=== PATIENT | female | born 1990 | race Caucasian/White ===

== ENCOUNTER 2021-10-19 12:35 | Emergency (ER) | payer OTHER ==
[~2021-10-19 12:35] MED LIST: AZITHROMYCIN250 MG PO; BENTYL10 MG PO; PREDNISONE 20MG20 MG PO; TOPAMAX25 MG PO; VENLAFAXINE HC100 MG PO
[2021-10-19 13:58] LABS: BILIRUBIN NEGATIVE (NEGATIVE); BLOOD 3+ Ery/uL (NEGATIVE); COLOR YELLOW (YELLOW); GLUCOSE (U) NORMAL (NORMAL); LEUKOCYTES 1+ Leu/uL (NEGATIVE); NITRITE NEGATIVE (NEGATIVE); PROTEIN 1+ mg/dL (NEGATIVE); SPECIFIC GRAVITY 1.025 (1.001-1.030); UROBILINOGEN 0.2 mg/dL (0.2-1.0)
[2021-10-19 13:59] LABS: BASOPHIL 0.1 % (0-2); EOSINOPHIL 0.5 % (0-5); HCT 43.1 % (37.0-47.0); HGB 14.3 g/dl (12.5-16.0); LYMPHOCYTE 12.8 % (15-48); MCH 30.2 pg (25.0-31.0); MCHC 33.2 g/dL (32.0-36.0); MCV 91.1 fL (78.0-100.0); MONOCYTE 6.6 % (0-12); MPV 10.4 fL (6.0-9.5); NEUTROPHIL 79.6 % (41-80); NRBC 0; PLT 200 K/uL (150-400); RBC 4.73 M/uL (4.20-5.40)
[2021-10-19 14:09] LABS: CLARITY CLOUDY (CLEAR)
[2021-10-19 14:13] LABS: BACTERIA 1+; URINARY RBC TNTC
[2021-10-19 14:25] LABS: ALBUMIN 3.8 g/dL (3.4-5.0); BILIRUBIN - TOTAL 0.4 mg/dL (0.2-1.0); BUN/CREAT RATIO (CALC) 13.6 RATIO; CREATININE 0.81 mg/dL (0.51-0.95); GLOBULIN (CALCULATION) 3.1 g/dL; POTASSIUM 4.2 mmol/L (3.5-5.1); TOTAL PROTEIN 6.9 g/dL (6.4-8.2)
[2021-10-19] MEDS ORDERED: NAPROSYN500 MG PO (14:38)
[2021-10-19] MEDS ORDERED: PYRIDIUM200 MG PO (14:39)
[2021-10-19] MEDS ORDERED: HYDROCODON-ACE1 EAC2 PO (14:39)
[2021-10-19] MEDS ORDERED: CEPHALEXIN500 MG PO (15:50)
== END 2021-10-19 16:01 | disposition home or self-care (01) ==
LOC: FER 12:35
PROVIDERS: Emergency Medicine
DX: N12 Tubulo-interstitial nephritis, not specified as acute or chronic (principal); F17.210 Nicotine dependence, cigarettes, uncomplicated; Z88.0 Allergy status to penicillin; Z88.2 Allergy status to sulfonamides
CPT/HCPCS: 36415; 80053; 81001; 82150; 83690; 85025; J0696; J2270; J2405

== ENCOUNTER 2021-10-25 19:20 | Emergency (ER) | payer OTHER ==
[~2021-10-25 19:20] MED LIST changes: +CEPHALEXIN500 MG PO; +HYDROCODON-ACE1 EAC2 PO; +NAPROSYN500 MG PO; +PYRIDIUM200 MG PO
[2021-10-25 20:12] LABS: BASOPHIL 0.2 % (0-2); EOSINOPHIL 2.8 % (0-5); HCT 41.2 % (37.0-47.0); HGB 13.6 g/dl (12.5-16.0); LYMPHOCYTE 32.5 % (15-48); MCH 30.1 pg (25.0-31.0); MCV 91.2 fL (78.0-100.0); MONOCYTE 8.5 % (0-12); MPV 10.2 fL (6.0-9.5); NEUTROPHIL 55.8 % (41-80); NRBC 0; PLT 189 K/uL (150-400); RBC 4.52 M/uL (4.20-5.40); RDW 13.1 % (11.5-14.0); WBC 5.8 K/uL (4.0-10.5)
[2021-10-25 20:16] LABS: BILIRUBIN NEGATIVE (NEGATIVE); BLOOD NEGATIVE Ery/uL (NEGATIVE); CLARITY CLEAR (CLEAR); COLOR YELLOW (YELLOW); GLUCOSE (U) NORMAL (NORMAL); LEUKOCYTES NEGATIVE Leu/uL (NEGATIVE); NITRITE NEGATIVE (NEGATIVE); PROTEIN NEGATIVE (NEGATIVE); SPECIFIC GRAVITY 1.025 (1.001-1.030); UROBILINOGEN 0.2 mg/dL (0.2-1.0)
[2021-10-25 20:30] LABS: ALBUMIN 3.4 g/dL (3.4-5.0); BILIRUBIN - TOTAL 0.2 mg/dL (0.2-1.0); BUN/CREAT RATIO (CALC) 12.5 RATIO; CREATININE 0.8 mg/dL (0.51-0.95); GLOBULIN (CALCULATION) 3.1 g/dL; POTASSIUM 3.7 mmol/L (3.5-5.1); TOTAL PROTEIN 6.5 g/dL (6.4-8.2)
== END 2021-10-25 21:22 | disposition home or self-care (01) ==
LOC: FER 19:20
PROVIDERS: Emergency Medicine
DX: R30.0 Dysuria (principal); F17.200 Nicotine dependence, unspecified, uncomplicated; Z88.0 Allergy status to penicillin; Z88.2 Allergy status to sulfonamides
CPT/HCPCS: 36415; 80053; 81003; 85025; 99283; J1885; J7030

== ENCOUNTER 2022-05-07 15:00 | Emergency (ER) | payer OTHER ==
[2022-05-07 17:20] LABS: BILIRUBIN NEGATIVE (NEGATIVE); BLOOD NEGATIVE Ery/uL (NEGATIVE); CLARITY CLEAR (CLEAR); COLOR YELLOW (YELLOW); GLUCOSE (U) TRACE mg/dL (NORMAL); LEUKOCYTES NEGATIVE Leu/uL (NEGATIVE); NITRITE POSITIVE (NEGATIVE); PROTEIN NEGATIVE (NEGATIVE); SPECIFIC GRAVITY <=1.005 (1.001-1.030); pH 6.5 (5.0-9.0)
[2022-05-07 17:34] LABS: BACTERIA TRACE; URINARY WBC RARE
[2022-05-07] MEDS ORDERED: CEPHALEXIN500 MG PO (18:36)
== END 2022-05-07 18:40 | disposition home or self-care (01) ==
LOC: FER 15:00
PROVIDERS: Nurse Practitioner Family
DX: N39.0 Urinary tract infection, site not specified (principal); Z88.2 Allergy status to sulfonamides; Z88.0 Allergy status to penicillin
CPT/HCPCS: 81001; 87088; 99284

== ENCOUNTER 2022-07-28 06:27 | Emergency (ER) | payer OTHER ==
[2022-07-28 06:55] LABS: BASOPHIL 0.2 % (0-2); EOSINOPHIL 0.8 % (0-5); HCT 39.6 % (37.0-47.0); HGB 13.4 g/dl (12.5-16.0); MCH 30.9 pg (25.0-31.0); MCHC 33.8 g/dL (32.0-36.0); MCV 91.2 fL (78.0-100.0); MONOCYTE 6.6 % (0-12); MPV 10.3 fL (6.0-9.5); NEUTROPHIL 58.2 % (41-80); NRBC 0; PLT 209 K/uL (150-400); RBC 4.34 M/uL (4.20-5.40); WBC 8.6 K/uL (4.0-10.5)
[2022-07-28 07:07] LABS: INR 0.97 (0.9-1.2); PROTHROMBIN TIME 12.6 SECONDS (11.9-13.9); PTT 31.1 SECONDS (24.9-34.6)
[2022-07-28 07:19] LABS: ALBUMIN 3.4 g/dL (3.4-5.0); BILIRUBIN - TOTAL 0.5 mg/dL (0.2-1.0); CREATININE 0.91 mg/dL (0.51-0.95); GLOBULIN (CALCULATION) 2.5 g/dL; POTASSIUM 3.5 mmol/L (3.5-5.1); TOTAL PROTEIN 5.9 g/dL (6.4-8.2)
[2022-07-28 07:36] LABS: CORONAVIRUS 2019 SARS-COV-2 NEGATIVE (NEGATIVE); INFLUENZA A NAA NEGATIVE (NEGATIVE)
[2022-07-28 07:47] LABS: BILIRUBIN NEGATIVE (NEGATIVE); BLOOD NEGATIVE Ery/uL (NEGATIVE); CLARITY CLEAR (CLEAR); COLOR YELLOW (YELLOW); GLUCOSE (U) NORMAL (NORMAL); LEUKOCYTES NEGATIVE Leu/uL (NEGATIVE); NITRITE NEGATIVE (NEGATIVE); PROTEIN NEGATIVE (NEGATIVE); SPECIFIC GRAVITY <=1.005 (1.001-1.030); UROBILINOGEN 0.2 mg/dL (0.2-1.0); pH 6.5 (5.0-9.0)
[2022-07-28] MEDS ORDERED: PEPCID AC20 MG PO (09:34)
[2022-07-28] MEDS ORDERED: CARAFATE1 GM PO (09:34)
== END 2022-07-28 10:25 | disposition home or self-care (01) ==
LOC: FER 06:27
PROVIDERS: Internal Medicine
DX: K21.9 Gastro-esophageal reflux disease without esophagitis (principal); F17.210 Nicotine dependence, cigarettes, uncomplicated; Z20.822 Contact with and (suspected) exposure to COVID-19; Z88.0 Allergy status to penicillin; Z88.1 Allergy status to other antibiotic agents
CPT/HCPCS: 36415; 80053; 81003; 83605; 83690; 85025; 85610; 85730; J1170; J2405; J7030; U0002